=== PATIENT | female | born 1975 | race Caucasian/White ===

== ENCOUNTER 2022-02-10 05:43 | Emergency (ER) | payer MEDICAID ==
[~2022-02-10] VITALS: Ht 167.6 cm; Wt 68.1 kg
[2022-02-10 05:43] VITALS: BP 140/74
[2022-02-10] MEDS ORDERED: FLUORESCEIN OPHTH TEST STRIP. ONE (06:02)
[2022-02-10] MEDS ORDERED: TETRACAINE 0.5% OPHTH SOLUTION 4ML BOTTLE. ONE (06:25)
[2022-02-10] MEDS ORDERED: CIPR2.5D2 OS (06:35)
[2022-02-10] MEDS ORDERED: CIPROFLOXACIN 0.3% OPHTH SOLUTION 5ML BOTTLE. OS ONE (07:00)
--- NOTE | 2022-02-10 07:01 | PHYS DOC ---
Past Medical History Past Surgical History: Cholecystectomy, Tubal ligation Smoking Status: Current Every Day Smoker Alcohol Use: None General Adult EDM: Chief Complaint: EYE PROBLEMS HPI: HPI: Patient is a 46 year old F who presents with trauma to the left eye. Patient states that her friend was kicking his feet and the patient's face got in the way and toenail of her friend scratched her left eye. Patient states that this occurred about 12 hours ago, she has had increasing pain since then. She states that it feels like there is something in her eye. Review of Systems: Review of Systems: Constitutional: Denies fever or chills. [] Eyes: Denies change in visual acuity. [] HENT: Denies nasal congestion or sore throat. [] Respiratory: Denies cough or shortness of breath. [] Cardiovascular: Denies chest pain or edema. [] GI: Denies abdominal pain, nausea, vomiting, bloody stools or diarrhea. [] : Denies dysuria. [] Musculoskeletal: Denies back pain or joint pain. [] Integument: Denies rash. [] Neurologic: Denies headache, focal weakness or sensory changes. [] Endocrine: Denies polyuria or polydipsia. [] Lymphatic: Denies swollen glands. [] Psychiatric: Denies depression or anxiety. [] Heart Score: C/O Chest Pain: No Risk Factors: Risk Factors: DM, Current or recent (<one month) smoker, HTN, HLP, family history of CAD, obesity. Risk Scores: Score 0 - 3: 2.5% MACE over next 6 weeks - Discharge Home Score 4 - 6: 20.3% MACE over next 6 weeks - Admit for Clinical Observation Score 7 - 10: 72.7% MACE over next 6 weeks - Early Invasive Strategies Current Medications: Current Medications Medications (Trade) Dose Ordered Sig/Ninoska Start Time Stop Time Status Last Admin Dose Admin Ciprofloxacin (Ciloxan Ophth) 1 drop 1X ONCE 02/10/22 07:00 02/10/22 06:35 DC Fluorescein Sodium (Ful-Mylene) 1 strip STK-MED ONCE 02/10/22 06:02 02/10/22 06:02 DC Tetracaine HCl (Tetracaine) 40 drop STK-MED ONCE 02/10/22 06:25 02/10/22 06:26 DC Allergies: Allergies: Allergies Coded Allergies Type Severity Reaction Last Updated Verified morphine Allergy Intermediate Vomiting 02/10/22 Yes Physical Exam: PE: Constitutional: Well developed, well nourished, no acute distress, non-toxic appearance. [] HENT: Normocephalic, atraumatic, bilateral external ears normal, oropharynx moist, no oral exudates, nose normal. Left corneal abrasion in circular pattern noted on left eye over pupil, about 2-3mm, confirmed with florescence. [] Eyes: PERRLA, EOMI, conjunctiva normal, no discharge. [] Neck: Normal range of motion, no tenderness, supple, no stridor. [] Cardiovascular:Heart rate regular rhythm, no murmur [] Lungs & Thorax: Bilateral breath sounds clear to auscultation [] Abdomen: Bowel sounds normal, soft, no tenderness, no masses, no pulsatile masses. [] Skin: Warm, dry, no erythema, no rash. [] Back: No tenderness, no CVA tenderness. [] Extremities: No tenderness, no cyanosis, no clubbing, ROM intact, no edema. [] Neurologic: Alert and oriented X 3, normal motor function, normal sensory function, no focal deficits noted. [] Psychologic: Affect normal, judgement normal, mood normal. [] Current Patient Data: Vital Signs: Vital Signs Date Time Temp Pulse Resp B/P (MAP) Pulse Ox O2 Delivery O2 Flow Rate FiO2 02/10/22 05:43 98.0 73 20 140/74 (96) 100 Room Air 98.0 EKG: EKG: [] Radiology/Procedures: Impression: Left Corneal Abrasion Course & Med Decision Making: Course & Med Decision Making Pertinent Labs and Imaging studies reviewed. (See chart for details) Seen and evaluated by myself, 46-year-old female with left corneal abrasion co nfirmed with fluorescein exam. About 2 to 3 mm in diameter, circular. Patient reports that friends a toenail scratched her eye while performing sexual acts. Patient refused to perform Snellen exam. Tetracaine administered to left eye, patient still refused to perform Snellen exam. Patient states she does not have blurry vision. Patient given urgent referral to ophthalmology for 24-hour visit. Phone number for senior geotechnical engineer given to patient as well, pt agreed to f/u in 24 hours. Patient given ciprofloxacin drops in hand. Patient instructed to take drops 4 times per day. Patient states that she would follow-up with ophthalmology. Patient stable at the time of discharge. All questions answered. Timbo Disclaimer: Timbo Disclaimer: This electronic medical record was generated, in whole or in part, using a voice recognition dictation system. Departure Departure Impression: Primary Impression: Corneal abrasion, left Disposition: 01 HOME / SELF CARE / HOMELESS Condition: GOOD Patient Instructions: Eye - Corneal Abrasion, [id number] Additional Instructions: Follow up with ophthalmology in 24 hours Use your antibiotic drops, this will promote healing. Do not rub your eye Scripts Ciprofloxacin Hcl (CIPROFLOXACIN HCL) 2.5 Ml Drops 1 DROP OS QID for 7 Days, #5 ML 0 Refills Prov: JUAN JOSE CORDOVA MD 02/10/22 JUAN JOSE CORDOVA MD February 10, 2022 07:01
== END 2022-02-10 07:12 | disposition home or self-care (01) ==
LOC: ER 05:43
DX: S05.02XA Injury of conjunctiva and corneal abrasion without foreign body, left eye, initial encounter (principal); Z88.5 Allergy status to narcotic agent; F17.200 Nicotine dependence, unspecified, uncomplicated; X58.XXXA Exposure to other specified factors, initial encounter; Y93.89 Activity, other specified; Y92.89 Other specified places as the place of occurrence of the external cause; Y99.8 Other external cause status
CPT/HCPCS: 99283